=== PATIENT | female | born 1975 | race Caucasian/White ===

== ENCOUNTER 2019-06-26 17:25 | Emergency (ER) | payer SELFPAY ==
[~2019-06-26] VITALS: Ht 162.6 cm; Wt 77.1 kg
--- OUTSIDE RECORDS SUMMARY | 2019-06-26 17:28 | XMS REPORT ---
[facility] Phone Unavailable Care Team Providers Care Materials Intern Name Role Phone Unavailable Unavailable Problems This patient has no known problems. Allergies, Adverse Reactions, Alerts This patient has no known allergies or adverse reactions. Medications This patient has no known medications. Encounters Start Date/Time End Date/Time Encounter Type Admission Type Attending [facility] Care Department Encounter ID 2018-03-04 00:00:00 Inpatient [facility] [id number] 2018-03-04 00:00:00 Inpatient [facility] [id number] 2017-03-23 00:00:00 Inpatient [facility] [id number] 2019-06-19 00:00:00 2019-06-19 00:00:00 Outpatient [facility] [id number] 2019-04-16 00:00:00 2019-04-16 00:00:00 Outpatient [facility] [id number] 2019-04-04 00:00:00 2019-04-04 00:00:00 Outpatient [facility] [id number] 2019-01-23 00:00:00 2019-01-23 00:00:00 Outpatient [facility] [id number] 2019-01-22 13:45:52 2019-01-22 13:45:52 Outpatient [facility] [id number] 2019-01-22 13:03:35 2019-01-22 13:03:35 Outpatient [facility] [id number] 2019-01-22 11:11:53 2019-01-22 11:11:53 Outpatient [facility] [id number] 2019-01-21 00:00:00 2019-01-21 00:00:00 Outpatient [facility] [id number] 2019-01-17 00:00:00 2019-01-17 00:00:00 Outpatient [facility] [id number] 2019-01-14 16:12:11 2019-01-14 16:12:11 Outpatient [facility] [id number] 2018-12-31 00:00:00 2018-12-31 00:00:00 Outpatient [facility] [id number] 2018-12-19 14:00:57 2018-12-19 14:00:57 Outpatient [facility] [id number] 2018-12-19 13:39:09 2018-12-19 13:39:09 Outpatient [facility] [id number] 2018-11-28 00:00:00 2018-11-28 00:00:00 Outpatient [facility] [id number] 2018-11-19 14:17:15 2018-11-19 14:17:15 Outpatient [facility] [id number] 2018-11-19 14:06:46 2018-11-19 14:06:46 Outpatient [facility] [id number] 2018-10-30 09:48:46 2018-10-30 09:48:46 Outpatient [facility] [id number] 2018-10-30 09:41:40 2018-10-30 09:41:40 Outpatient [facility] [id number] 2018-10-30 00:00:00 2018-10-30 00:00:00 Outpatient [facility] [id number] 2018-10-29 00:00:00 2018-10-29 00:00:00 Outpatient [facility] [id number] 2018-10-26 16:12:50 2018-10-26 16:12:50 Outpatient [facility] [id number] 2018-10-26 15:10:05 2018-10-26 15:10:05 Outpatient [facility] [id number] 2018-10-25 13:01:52 2018-10-25 13:01:52 Outpatient [facility] [id number] 2018-10-04 07:53:22 2018-10-04 07:53:22 Outpatient [facility] [id number] 2018-07-20 09:28:11 2018-07-20 09:28:11 Outpatient [facility] [id number] 2018-07-20 08:00:34 2018-07-20 08:00:34 Outpatient [facility] [id number] 2018-07-16 15:02:50 2018-07-16 15:02:50 Outpatient [facility] [id number] 2018-07-13 12:32:41 2018-07-13 12:32:41 Outpatient [facility] [id number] 2018-07-13 11:29:24 2018-07-13 11:29:24 Outpatient [facility] [id number] 2018-07-13 10:39:06 2018-07-13 10:39:06 Outpatient [facility] [id number] 2018-06-07 00:00:00 2018-06-07 00:00:00 Outpatient [facility] [id number] 2018-05-30 00:00:00 2018-05-30 00:00:00 Outpatient [facility] [id number] 2018-04-27 00:00:00 2018-04-27 00:00:00 Outpatient [facility] [id number] 2018-04-20 00:00:00 2018-04-20 00:00:00 Outpatient [facility] [id number] 2018-04-19 00:00:00 2018-04-19 00:00:00 Outpatient [facility] [id number] 2018-04-19 00:00:00 2018-04-19 00:00:00 Outpatient [facility] [id number] 2018-04-18 00:00:00 2018-04-18 00:00:00 Outpatient [facility] [id number] 2018-04-06 00:00:00 2018-04-06 00:00:00 Outpatient [facility] [id number] 2018-04-02 00:00:00 2018-04-02 00:00:00 Outpatient [facility] [id number] 2018-03-28 13:40:21 2018-03-28 13:40:21 Outpatient [facility] [id number] 2018-03-28 12:48:06 2018-03-28 12:48:06 Outpatient [facility] [id number] 2018-03-16 00:00:00 2018-03-16 00:00:00 Outpatient [facility] [id number] 2018-03-02 09:17:00 2018-03-02 09:17:00 Inpatient [facility] [id number] 2018-03-02 00:00:00 2018-03-02 00:00:00 Outpatient [facility] [id number] 2018-03-02 00:00:00 2018-03-02 00:00:00 Outpatient [facility] [id number] 2018-03-02 00:00:00 2018-03-02 00:00:00 Outpatient [facility] [id number] 09:29:29 2018 09:29:29 Outpatient [facility] [id number] 2018-02-27 11:40:18 2018-02-27 11:40:18 Outpatient [facility] [id number] 2018-02-27 10:24:52 2018-02-27 10:24:52 Outpatient [facility] [id number] 2018-02-23 00:00:00 2018-02-23 00:00:00 Outpatient [facility] [id number] 2018-02-20 09:40:16 2018-02-20 09:40:16 Outpatient [facility] [id number] 2018-02-15 00:00:00 2018-02-15 00:00:00 Outpatient [facility] [id number] 2018-02-15 00:00:00 2018-02-15 00:00:00 Outpatient [facility] [id number] 2018-02-13 10:07:39 2018-02-13 10:07:39 Outpatient [facility] [id number] 2018-02-09 00:00:00 2018-02-09 00:00:00 Outpatient [facility] [id number] 2018-02-08 10:01:22 2018-02-08 10:01:22 Outpatient [facility] [id number] 2018-02-08 09:53:02 2018-02-08 09:53:02 Outpatient [facility] [id number] 2018-02-08 09:03:56 2018-02-08 09:03:56 Outpatient [facility] [id number] 2018-02-07 14:08:57 2018-02-07 14:08:57 Outpatient [facility] [id number] 2018-02-01 10:21:22 2018-02-01 10:21:22 Outpatient [facility] [id number] 2018-02-01 00:00:00 2018-02-01 00:00:00 Outpatient [facility] [id number] 2017-12-12 00:00:00 2017-12-12 00:00:00 Outpatient [facility] [id number] 2017-12-11 00:00:00 2017-12-11 00:00:00 Outpatient [facility] [id number] 2017-11-16 00:00:00 2017-11-16 00:00:00 Outpatient [facility] [id number] 2017-11-09 00:00:00 2017-11-09 00:00:00 Outpatient [facility] [id number] 2017-11-06 10:35:58 2017-11-06 10:35:58 Outpatient [facility] [id number] 2017-11-06 09:11:52 2017-11-06 09:11:52 Outpatient [facility] [id number] 2017-11-03 14:56:09 2017-11-03 14:56:09 Outpatient [facility] [id number] 2017-10-30 13:36:16 2017-10-30 13:36:16 Outpatient [facility] [id number] 2017-10-25 15:03:47 2017-10-25 15:03:47 Outpatient [facility] [id number] 2017-07-18 10:18:12 2017-07-18 10:18:12 Outpatient [facility] [id number] 2017-07-10 10:56:29 2017-07-10 10:56:29 Outpatient [facility] [id number] 2017-06-23 00:00:00 2017-06-23 00:00:00 Outpatient [facility] [id number] 2017-06-23 00:00:00 2017-06-23 00:00:00 Outpatient [facility] [id number] 2017-06-23 00:00:00 2017-06-23 00:00:00 Outpatient [facility] [id number] 2017-06-23 00:00:00 2017-06-23 00:00:00 Outpatient [facility] [id number] 2017-06-09 13:50:54 2017-06-09 13:50:54 Outpatient [facility] [id number] 2017-06-08 10:34:46 2017-06-08 10:34:46 Outpatient [facility] [id number] 2017-06-07 13:00:03 2017-06-07 13:00:03 Outpatient [facility] [id number] 2017-06-07 12:58:49 2017-06-07 12:58:49 Outpatient [facility] [id number] 2017-05-30 00:00:00 2017-05-30 00:00:00 Outpatient [facility] [id number] 2017-05-11 13:03:53 2017-05-11 13:03:53 Outpatient [facility] [id number] 2017-04-21 14:00:03 2017-04-21 14:00:03 Outpatient [facility] [id number] 2017-04-21 09:58:48 2017-04-21 09:58:48 Outpatient [facility] [id number] 2017-04-20 00:00:00 2017-04-20 00:00:00 Outpatient [facility] [id number] 2017-04-18 00:00:00 2017-04-18 00:00:00 Outpatient [facility] [id number] 2017-04-17 00:00:00 2017-04-17 00:00:00 Outpatient [facility] [id number] 2017-04-10 07:57:30 2017-04-10 07:57:30 Outpatient [facility] [id number] 2017-03-24 13:09:01 2017-03-24 13:09:01 Outpatient [facility] [id number] 2017-03-23 15:46:07 2017-03-23 15:46:07 Outpatient [facility] [id number] 2017-03-23 11:55:22 2017-03-23 11:55:22 Outpatient [facility] [id number] 2017-02-21 00:00:00 2017-02-21 00:00:00 Outpatient [facility] [id number] 2017-02-06 14:39:35 2017-02-06 14:39:35 Outpatient [facility] [id number]
[2019-06-26] MEDS ORDERED: SODIUM CHLORIDE 0.9% 1000ML 1,000 ML IV STA (17:34)
[2019-06-26] MEDS ORDERED: SODIUM CHLORIDE 0.9% 1000ML 1,000 ML ONE (18:06)
--- NOTE | 2019-06-26 18:07 | Diagnostic Imaging Report ---
EXAMINATION: PA and lateral views of the chest. COMPARISON: None CLINICAL HISTORY: Chest pain DISCUSSION: Lines/tubes: None. Lungs: The lungs are well inflated and clear. No pneumonia or pulmonary edema. Pleura: No pleural effusion or pneumothorax. Heart and mediastinum: The cardiomediastinal silhouette is normal. Bones and soft tissues: No acute bony abnormalities. IMPRESSION: No acute cardiopulmonary abnormalities. Signed by: Dr. Leo Pereira M.D. on 06/26/2019 6:04 PM
[2019-06-26 19:16] VITALS: BP 154/82
== END 2019-06-26 19:22 | disposition home or self-care (01) ==
LOC: FSED 17:25
DX: R50.9 Fever, unspecified (principal); R05 Cough; J20.8 Acute bronchitis due to other specified organisms
CPT/HCPCS: 71046; 80053; 80076; 80307; 81003; 82553; 84484; 85025; 87400; 93005; 99284; J7030